=== PATIENT | female | born 1940 | race Caucasian/White ===

== ENCOUNTER → 2017-09-05 | Outpatient (CLI) | payer MEDICARE, BC | LOC: MC.RAD 09:00 | DX: N60.02 Solitary cyst of left breast (principal); N64.89 Other specified disorders of breast ==

== ENCOUNTER 2021-08-03 14:54 | Emergency (ER) | payer MEDICARE, BC ==
[~2021-08-03] VITALS: Ht 157.5 cm; Wt 68.2 kg
[2021-08-03 15:23] VITALS: TEMP 98.7
[2021-08-03 16:20] LABS: BASO % 0.4 % (0.0-2.0); EOS % 0.2 % (0-4.0); GRAN # 8.6 (1.4-6.5); HEMATOCRIT 39.6 % (37.0-47.0); HEMOGLOBIN 14.7 g/dl (12.5-16.0); LYMPH # 1.7 (1.2-3.4); LYMPH % 15.1 % (20.0-51.0); MEAN CELL VOLUME 87 fl (80.0-100.0); MEAN CORPUSCULAR HEMOGLOBIN 32 pg (27.0-31.0); MEAN CORPUSCULAR HGB CONC 37 g/dl (33.0-37.0); MONO # 0.8 (0.1-0.6); MONO % 6.9 % (1.7-9.3); PLATELET COUNT 416 K/mm3 (130-400); RED BLOOD COUNT 4.54 M/mm3 (4.10-5.30)
[2021-08-03 16:41] LABS: ALBUMIN 4.6 gm/dL (3.5-5.0); BILIRUBIN,TOTAL 0.4 mg/dL (0.0-1.0); C-REACTIVE PROTEIN 0.7 mg/dL (0.0-0.9); CALCIUM 9.6 mg/dL (8.4-10.2); CREATININE, serum 0.59 (0.52-1.25); TOTAL PROTEIN 7.6 gm/dL (6.4-8.2)
[2021-08-03 16:43] LABS: POTASSIUM 2.7 mmol/L (3.4-5.0)
[2021-08-03 16:59] LABS: COLLECTION METHOD CLEAN CATCH
[2021-08-03] MEDS ORDERED: NORVASC2.5 MG PO (17:08)
[2021-08-03] MEDS ORDERED: NEURONTIN600 MG/TAB PO (17:09)
[2021-08-03] MEDS ORDERED: HCTZ 25MG TAB25 MG PO (17:09)
[2021-08-03] MEDS ORDERED: LYRICA 100MG C100 M1 PO (17:10)
[2021-08-03] MEDS ORDERED: NORCO 325 MG-7.1 TAB PO (17:13)
[2021-08-03] MEDS ORDERED: XANAX .25M0.25 MG/TA PO (17:14)
[2021-08-03] MEDS ORDERED: FLAGYL500 MG PO (17:14)
[2021-08-03] MEDS ORDERED: LOMOTIL 0.025 M1 TAB PO (17:15)
[2021-08-03] MEDS ORDERED: BENTYL 20MG20 MG/TAB PO (17:16)
[2021-08-03 17:24] LABS: MUCOUS Present /lpf; PH 7 (5-8); SQUAMOUS EPITHELIAL 0-2 /hpf; URINE APPEARANCE Clear; URINE BACTERIA None Seen /hpf; URINE BILIRUBIN Negative (NEGATIVE); URINE BLOOD Negative (NEGATIVE); URINE COLOR Yellow; URINE GLUCOSE Negative (NEGATIVE); URINE KETONE Negative (NEGATIVE); URINE LEUKOCYTE ESTERASE Negative (NEGATIVE); URINE NITRATE Negative (NEGATIVE); URINE PROTEIN(semi-quant) Negative (NEGATIVE); URINE RBC 0-2 /hpf; URINE UROBILINOGEN Negative (NEGATIVE)
[2021-08-03] MEDS ORDERED: K-DUR 10 MEQ T10 MEQ PO (18:54)
[2021-08-03 20:49] VITALS: BP 125/79; PULSE 86
== END 2021-08-03 19:33 | disposition home or self-care (01) ==
LOC: COL.ER 14:54
PROVIDERS: Family Medicine
DX: R10.31 Right lower quadrant pain (principal); E87.6 Hypokalemia; E87.1 Hypo-osmolality and hyponatremia; I10 Essential (primary) hypertension; Z79.899 Other long term (current) drug therapy
CPT/HCPCS: Q9967